=== PATIENT | female | born 2000 | race Hispanic/Latino ===

== ENCOUNTER 2020-11-26 20:51 | Emergency (ER) | payer OTHER, SELFPAY ==
--- NOTE | ~2020-11-26 | XR_ITS ---
EXAMINATION: XR shoulder RT min 2V EXAM DATE: 11/26/2020 INDICATION: Initial encounter following injury, with pain of the right shoulder. Fall. TECHNIQUE: The following right shoulder projections obtained: frontal projection with internal rotati on, frontal projection with external rotation, Grashey, and scapular Y view (4+ views). There is no prior study for comparison. FINDINGS: There is acute closed posttraumatic essentially nondisplaced fracture through the neck of t he right humerus in near-anatomic alignment. No dislocation. Acromioclavicular joint, scapula are unr emarkable. IMPRESSION: Acute right humeral neck fracture. Reviewed, dictated and finalized at location G.
[2020-11-26 20:54] VITALS: BP 93/48; PULSE 86; RESP 16; TEMP 36.6; O2SAT 100
--- NOTE | 2020-11-26 21:05 | ED.GENADULT ---
HPI - General Adult General Chief complaint: Extremity Injury, Upper Stated complaint: RIGHT UPPER ARM INJURY Time Seen by Provider: 11/26/20 21:00 Source: patient, family and RN notes reviewed Mode of arrival: ambulatory Limitations: no limitations History of Present Illness HPI narrative: Patient is a 20-year-old female who presents with right upper extremity injury localized to the right humerus injured it while playing kickball on a slip and slide notes moderate aching pain worse with touch and activity denies other injuries or complaints presents per private vehicle has not had anything for pain Related Data Allergies Allergy/AdvReac Type Severity Reaction Status Date / Time No Known Allergies Allergy Verified 11/26/20 20:53 Review of Systems Review of Systems: All systems reviewed & are unremarkable except as noted in HPI and below PMFSH Social History Social History (Updated 11/26/20 @ 21:05 by Eliel Dickens PA-C) Smoking status: Never smoker Exam Narrative: Exam Narrative: GENERAL: Well-appearing, well-nourished, and in no acute distress. HEAD: Normocephalic, atraumatic. EYES: PERRLA and EOMI. ENT: Nares clear, no rhinorrhea or epistaxis. Mucous membranes moist. EXTREMITIES: Normal range of motion. No edema. Tenderness of the right humerus SKIN: Warm, dry, no rash. NEURO: No focal deficits. Alert and oriented x3. Neurovascularly intact PSYCH: Normal mood and affect. Course Course Emergency Course: Patient in the room no distress provided with orthopedic follow-up and medications placed in sling Consultations Consultation #1: Case discussed with Dr. Lew orthopedics will follow patient in clinic Date: 11/26/20 Time: 21:21 Vital Signs Vital signs: Vital Signs Temperature 97.8 F 11/26/20 20:54 Pulse Rate 86 11/26/20 20:54 Respiratory Rate 16 11/26/20 20:54 Blood Pressure 93/48 L 11/26/20 20:54 Pulse Oximetry 100 11/26/20 20:54 Temperature 97.8 F 11/26/20 20:54 Pulse Rate 86 11/26/20 20:54 Respiratory Rate 16 11/26/20 20:54 Blood Pressure 93/48 L 11/26/20 20:54 Pulse Oximetry 100 11/26/20 20:54 Medical Decision Making MDM Narrative Medical decision making narrative: Patients injury or pain is consistent with musculoskeletal etiology. No signs of neurological or vascular compromise on exam. Compartments and tisues are soft without signs of compartment syndrome. Pain is felt appropriate for further evaluation on an outpatient basis. Vital Signs Vital Signs: Vital Signs Temperature 97.8 F 11/26/20 20:54 Pulse Rate 86 11/26/20 20:54 Respiratory Rate 16 11/26/20 20:54 Blood Pressure 93/48 L 11/26/20 20:54 Pulse Oximetry 100 11/26/20 20:54 Temperature 97.8 F 11/26/20 20:54 Pulse Rate 86 11/26/20 20:54 Respiratory Rate 16 11/26/20 20:54 Blood Pressure 93/48 L 11/26/20 20:54 Pulse Oximetry 100 11/26/20 20:54 Imaging Data Radiologist's impression: ITS Impressions Shoulder X-Ray 11/26/20 21:10 IMPRESSION: Acute right humeral neck fracture. Discharge Plan Discharge Clinical Impression: Shoulder fracture Patient Disposition: Home, Self-Care Condition: Stable Instructions: Antibiotic Form, Arm Fracture in Adults (ED), How to Use a Sling (ED) Additional Instructions: Follow-up with orthopedic surgeon on Saturday for reevaluation Wear sling with intermittent icing for symptom Only take medications as directed Return if symptoms worsen or concerns or any increase in redness swelling pain fever over 100.5 or any loss of feeling or function in the extremity Prescriptions: New hydrocodone-acetaminophen 5-325 mg tablet 1 - 2 tablet PO Q6H PRN (Reason: pain) Qty: 20 RF: 0 Follow-up/Referrals: PHYSICIAN,LITIGATION MANAGER [Primary Care Provider] - Db Lew MD [Physician] - Stand Alone Forms: Work/School Release IP
[2020-11-26] MEDS: HYDROcodone/acetaminophen (*CRX) 7.5-325 MG TABLET 1 TAB PO (21:38)
[2020-11-26 21:40] VITALS: BP 104/68; PULSE 89; RESP 16; TEMP 36.7; O2SAT 100
== END 2020-11-26 21:45 | disposition home or self-care (01) ==
LOC: ANHED 21:35
PROVIDERS: Emergency Provider Emergency Medicine
DX: S42.301A Unspecified fracture of shaft of humerus, right arm, initial encounter for closed fracture (principal); W01.0XXA Fall on same level from slipping, tripping and stumbling without subsequent striking against object, initial encounter
CPT/HCPCS: 73030; 73060; 99284; A4565; A9270